=== PATIENT | male | born 1990 | race Caucasian/White ===

== ENCOUNTER 2024-05-28 00:02 | Emergency (ER) | payer OTHER ==
[~2024-05-28] VITALS: Ht 167.6 cm; Wt 7.1 kg
[2024-05-28 00:05] VITALS: TEMP 97.7; O2SAT 100
[2024-05-28 00:07] VITALS: BP 126/81
[2024-05-28] MEDS ORDERED: METH-1165 PO (01:59)
[2024-05-28] MEDS: methocarbamoL 750 MG TAB PO ONE (02:07)
== END 2024-05-28 02:14 | disposition home or self-care (01) ==
LOC: M ED 00:02
DX: M54.42 Lumbago with sciatica, left side (principal); R06.4 Hyperventilation; F17.200 Nicotine dependence, unspecified, uncomplicated; Z79.899 Other long term (current) drug therapy

== ENCOUNTER → 2024-06-07 | Outpatient (CLI) | payer OTHER ==
[~2024-06-07] MED LIST: METH-1165 PO
== END ==
LOC: M RAD 06-05 07:25 → M PLARAD 12:11
PROVIDERS: ATTEND Nurse Practitioner Family
DX: R20.2 Paresthesia of skin (principal); M51.26 Other intervertebral disc displacement, lumbar region; M51.27 Other intervertebral disc displacement, lumbosacral region

== ENCOUNTER 2024-10-12 03:55 | Emergency (ER) | payer OTHER ==
[~2024-10-12] VITALS: Ht 167.6 cm; Wt 78.1 kg
[2024-10-12] MEDS ORDERED: LIDO5DIS41 TOP (04:35)
[2024-10-12] MEDS: METHOCARBAMOL 1,000 MG/10 ML VIAL IV ONE (05:19)
[2024-10-12] MEDS: KETOROLAC 30 MG/ML 1ML VIAL IV ONE (05:19)
[2024-10-12 05:26] LABS: BASO # 0.1 10^3/uL (0.0-0.2); BASO % 0.9 % (0.0-1.0); EOS # 0.1 10^3/uL (0.0-0.5); EOS % 0.8 % (0.0-3.0); HEMATOCRIT 40.9 % (42.0-52.0); HEMOGLOBIN 13.6 g/dl (13.5-17.5); LYMPH % 39.9 % (24.0-44.0); MEAN CORPUSCULAR HEMOGLOBIN 27.8 pg (27.0-33.0); MEAN CORPUSCULAR HGB CONC 33.3 g/dl (32.0-36.5); MEAN CORPUSCULAR VOLUME 83.5 fl (80.0-96.0); MONO # 0.6 10^3/uL (0.0-0.8); MONO % 8.1 % (2.0-8.0); NEUTROPHILS # 3.7 10^3/uL (1.5-8.5); NEUTROPHILS % 49.5 % (36.0-66.0); PLATELET COUNT, AUTOMATED 230 10^3/uL (150-450); WHITE BLOOD COUNT 7.5 10^3/uL (4.0-10.0)
[2024-10-12 05:43] LABS: BLOOD UREA NITROGEN 19 MG/DL (9-23); C REACTIVE PROTEIN QUANTITATIV < 0.50 MG/DL (<1.0); CALCIUM LEVEL 8.1 MG/DL (8.5-10.1); CARBON DIOXIDE LEVEL 26 MMOL/L (20-31); CHLORIDE LEVEL 110 MMOL/L (98-107); CREATININE FOR GFR 1.61 MG/DL (0.70-1.30); GLOMERULAR FILTRATION RATE 52.3 (>60); GLUCOSE, FASTING 92 MG/DL (60-100); SODIUM LEVEL 141 MMOL/L (136-145)
[2024-10-12] MEDS: NS (Normal Saline) 0.9% 1,000 ML IV ONE (06:34)
[2024-10-12] MEDS ORDERED: PROHANCE 279.3MG/ML 15ML VIAL As Ordered ONE (07:26)
[2024-10-12] MEDS ORDERED: MEDR4PAK PO (10:08)
[2024-10-12 10:22] VITALS: BP 130/72; TEMP 97.2; O2SAT 98
== END 2024-10-12 10:37 | disposition home or self-care (01) ==
LOC: M ED 03:55
DX: M51.26 Other intervertebral disc displacement, lumbar region (principal); M51.24 Other intervertebral disc displacement, thoracic region; G95.81 Conus medullaris syndrome; F17.200 Nicotine dependence, unspecified, uncomplicated; Z79.899 Other long term (current) drug therapy
CPT/HCPCS: 72157; 72158; 80048; 85025; 86140; 87040; 96361; 96374; 99284; A9576; J1885; J2800

== ENCOUNTER → 2024-12-25 | Outpatient (REF) ==
[~2024-12-25] MED LIST changes: +LIDO1ADH93 TOP; +MEDR4PAK PO
== END ==
LOC: M PLAIMG 08:45
PROVIDERS: ATTEND Internal Medicine
DX: M47.896 Other spondylosis, lumbar region (principal)